=== PATIENT | female | born 1960 | race Caucasian/White ===

== ENCOUNTER 2018-05-28 13:45 | Outpatient (RCR) | payer OTHER, SELFPAY ==
--- NOTE | 2018-05-13 16:45 | PT.OPPOC ---
Current Diagnoses Sciatica, unspecified side (05/13/18) Provider Visit Care Team Role Provider Type Talat Avendaño MD Attending Provider Physician Primary Care Provider Specialty: Internal Medicine Address: [address] [place] [address], [facility] Email: Plan Of Care PT-OP-T Assessment and Plan Start: 05/13/18 16:44 Freq: Status: Active Protocol: Document 05/13/18 16:45 EA (Rec: 05/13/18 16:53 EA [id number]) Physical Therapy Assessment Rehab Potential Rehabilitation Potential Good Evaluation Complexity Number of Personal Factors/Comorbidities 1-2 Number of Body Systems Impaired 1-2 Clinical Presentation at Evaluation Stable Impairments Impairments Activity Tolerance Functional Activities Pain Posture ROM Soft Tissue Mobility Goals Four Impairment Impaired posture Group Home Goal (LTG) Patient will demonstrate near to normal lumbopelvic posture to prevent recurrence of symptoms LTG Duration 4 wks Three Impairment impaired activity tolerance Group Home Goal (LTG) Patient will perform elliptical machine cardio exercises > 30mins without increase in symptoms LTG Duration 4 wks Two Impairment Oswestry low back functional scale of 15/50 Sustainability Consultant Goal (LTG) Patient will have Oswestry score of <10/50 LTG Duration 4 wks One Impairment No HEP in place Sustainability Consultant Goal (LTG) Patient will learn and be independent in HEP LTG Duration 3 wks Assessment Summary Assessment Pleasant 57 y/o F patient with a referring diagnosis of sciatica presented today with a limited spinal mobility and tenderness to right lumbosacral region. Patient reveals sensitive to prone instability tests, negative to posterior quadrant tests to both neural and facets, negative to SLR passive/active , negative to Gaenslen's test. MMT reveals insignificant, sensory and DTRS are WFL, negative to pseudo claudication test. Spinal mobility reveals limited with side flexion>extension> rotation but with normal forward bending. Patient at this time is limited functional position tolerance and functional exercises tolerance that in my opinion would benefit with skilled PT to improve quality of life. Physical Therapy Plan Frequency and Duration Frequency of Treatment 2x/Week Duration of Treatment 8 wks Plan of Care Start Date 05/13/18 Plan of Care End Date 07/08/18 Therapeutic Interventions Therapeutic Interventions Home Exercise Program Joint Mobilizations Manual Therapy Self-Care/Home Management Soft Tissue Mobilization Taping Therapeutic Exercises Modalities Cold Pack/Ice Massage Electric Stimulation Hot Packs Ultrasound Next Visit Focus/Plan Next Note Type Treatment Note Next Visit Plan Provide HEP images; increase right and left side trunk flexibility, manual and modalities for pain Plan of Care Dates Plan of Care Start Date 05/13/18 Plan of Care End Date 07/08/18 Please Sign and Return: I have reviewed this Plan of Care and certify that the skilled therapy services above are required to meet the patient?s needs. Physician Signature Date Printed Name and Credentials Clinical Instructor Signature Printed Name and Credentials
--- NOTE | 2018-05-13 16:45 | PT.OIE ---
Current Diagnoses Sciatica, unspecified side (05/13/18) Past Medical History (Last Updated 02/03/18 @ 21:34 by Frances Carpenter) Hypertension (Chronic) Provider Visit Care Team Role Provider Type Talat Avendaño MD Attending Provider Physician Primary Care Provider Specialty: Internal Medicine Address: [address] [place] [address], [id number] Email: Physical Therapy Initial Evaluation PT-OP-A Visit Information Start: 05/13/18 16:44 Freq: Status: Active Protocol: Document 05/13/18 16:45 EA (Rec: 05/13/18 16:53 EA [id number]) Out-Patient Physical Therapy Visit Information Visit Information Visit Type Initial Evaluation Visit Start Time 15:15 Visit Stop Time 16:00 Total Visit Minutes 40 Visit Number 1 Evaluation Information Evaluation Date 05/13/18 PT-OP-B Current Condition Start: 05/13/18 16:44 Freq: Status: Active Protocol: Document 05/13/18 16:45 EA (Rec: 05/17/18 07:30 EA [id number]) Current Condition History of Current Condition Onset Date 9 years ago Current Complaints Radiating pain from lumbar to Right foot History of Current Condition Present condition started 9 years ago with similar complaint of radiating pain from lumbar to right leg down to foot. Patient condition 9 years ago was resolved with help of being active and being retired from from work. Patient reports re-aggravated last January of 2018 with no known reason which developed gradually. No recent diagnostic imaging. Pain managed by stretching and resting. Prior Treatments and Tests None Identified Future Testing and Treatments Planned None identified Treatment Goals Patient/Caregiver Goals Patient would like to be able to perform 3 x a week of cardio exercises without symptoms aggravation. Prior Functional Status Baseline Function- ADL's Independent Baseline Function- Mobility Independent Baseline Function- Gait No limitation Baseline Function- Work/School Retired Baseline Function- Recreation/Hobbies Active lifestyle with ability to perform 3-4 times a week of cardione exercises. Current Functional Impairments (Reported) Functional Limitations- ADL's Independent Functional Limitations- Mobility/Gait Limited with increasing activity duration due to pain Functional Limitations- Work/School Retired Functional Limitations- Recreation/ Unable to perform consistent Hobbies or regular fitness exercises due to pain PT-OP-C Subjective Start: 05/13/18 16:44 Freq: Status: Active Protocol: Document 05/13/18 16:45 EA (Rec: 05/17/18 07:30 EA [id number]) OP-PT Subjective Patient Comments Patient Comments Patient states I am concern that I am making it worst when i'm exercising with pain. Patient Reported Progress Same Patient Questionnaires Oswestry Low Back Index Oswestry Score 15 Oswestry Impairment 1 to 19% Impaired (Score 1-19) OP-PT Pain Assessment Pain Assessment Grid Paper Pain Assessment Grid Completed Yes Location Right Posterior Back Pain Location Details 4 Scale Used Numeric (1 - 10) Description Radiating Frequency Intermittent Pain Aggravating Factors Exercise Home Pain Medication Use Pain Medications Used No Comments Pain Comments Patient is amb with no acute distress. PT-OP-G Mobility & Gait Start: 05/13/18 16:44 Freq: Status: Active Protocol: Document 05/13/18 16:45 EA (Rec: 05/17/18 07:30 EA [id number]) OP Mobility Evaluation Bed Mobility Rolling no limitation Supine to and from Sit No limitation OP Gait Assessment Gait Gait Assistance Required: Independent Assistive Devices Assistive Device None Comments Gait Comments Increased pelvic lateral displacement PT-OP-H Neuro Start: 05/13/18 16:44 Freq: Status: Active Protocol: Document 05/13/18 16:45 EA (Rec: 05/17/18 07:30 EA [id number]) Sensation Evaluation Location Details Right Light Touch Intact/Normal Sharp/Dull Intact/Normal Deep Pressure Intact/Normal Hot/Cold Intact/Normal Protective Sensation Intact/Normal Proprioception (Position) Intact/Normal Kinesthesia (Movement) Intact/Normal Deep Tendon Reflex & Clonus Assessment Deep Tendon Reflex Achilles Deep Tendon Reflex 2+ Normal Right Patellar Deep Tendon Reflex 2+ Normal PT-OP-J Posture/Palpation/Skin Start: 05/13/18 16:44 Freq: Status: Active Protocol: Document 05/13/18 16:45 EA (Rec: 05/17/18 07:30 EA [id number]) Posture Evaluation Position Standing Evaluation View post/lateral Head/C-Spine Posture Neutral Position L-Spine Posture Increased Lordosis Pelvis Posture (R) Rotated Anterior (R) Iliac Crest Superior Hip Posture (R) Internally Rotated Palpation Assessment Location Two Palpation Location R L4-L5 PA mobility Palpation Findings Soft Tissue Tightness Tenderness One Palpation Location Right paralumbars, QL Palpation Findings Soft Tissue Tightness Trigger Point PT-OP-K Range of Motion Start: 05/13/18 16:44 Freq: Status: Active Protocol: Document 05/13/18 16:45 EA (Rec: 05/17/18 07:30 EA [id number]) Lumbar Spine Range of Motion Lumbar Spine Active Percentage Testing Position Standing Flexion 95 Extension 50 Rotation Left 80 Rotation Right 80 Lateral Flexion Left 50 Lateral Flexion Right 55 ROM Limitations Soft Tissue Tightness Pain Hip Goniometric Range of Motion Hip Measured in Degrees Active Hip ROM WFL Yes Extension 10 PT-OP-L Special Tests Start: 05/13/18 16:44 Freq: Status: Active Protocol: Document 05/13/18 16:45 EA (Rec: 05/17/18 07:37 EA [id number]) Special Tests Lumbar Spine Special Tests Other- 1 Test Results Posterior quadrant: negative to facets and nerve compression. Prone Instability Test Test Results Sensitive Straight Leg Raise Test Results - Hip Special Tests Stef Test Results + Comments tightnes to both RF PT-OP-M Strength Start: 05/13/18 16:44 Freq: Status: Active Protocol: Document 05/13/18 16:45 EA (Rec: 05/17/18 07:37 EA [id number]) Hip Strength Hip Manual Muscle Testing Right Reason Not Measured WFL Knee Strength Knee Manual Muscle Testing Right Reason Not Measured WFL Ankle/Foot Strength Ankle and Foot Manual Muscle Testing Right Reason Not Measured WFL Comments able to walk on heels and toes PT-OP-Q Treatments Start: 05/13/18 16:44 Freq: Status: Active Protocol: Document 05/13/18 16:45 EA (Rec: 05/13/18 16:53 EA [id number]) Therapeutic Exercises Supine Exercises 2 Supine Exercise Name Trunk rotation Reps/Minutes x 10 reps 1 Supine Exercise Name Hip flexors stretch Reps/Minutes x 30SH x 2 Comments HEP Prone Exercises 2 Prone Exercise Name Camel and Cat Reps/Minutes x 10 reps Comments hEP 1 Prone Exercise Name right QL stretch Reps/Minutes x30SH x 2 reps Comments HEP Standing Exercises 1 Standing Exercise Name Half Kneeling hip flexor stretch Self-Care/Home Management Treatment Education Patient Education Body Mechanics Home Exercise Program Pain Management Posture PT-OP-T Assessment and Plan Start: 05/13/18 16:44 Freq: Status: Active Protocol: Document 05/13/18 16:45 EA (Rec: 05/13/18 16:53 EA [id number]) Physical Therapy Assessment Rehab Potential Rehabilitation Potential Good Evaluation Complexity Number of Personal Factors/Comorbidities 1-2 Number of Body Systems Impaired 1-2 Clinical Presentation at Evaluation Stable Impairments Impairments Activity Tolerance Functional Activities Pain Posture ROM Soft Tissue Mobility Goals Four Impairment Impaired posture Fpc Goal (LTG) Patient will demonstrate near to normal lumbopelvic porture to prevent recurrence of symptoms LTG Duration 4 wks Three Impairment impaired activity tolerance Casing Mixer Goal (LTG) Patient will perform eliptical machine cardio exercises > 30mins without increase in symptoms LTG Duration 4 wks Two Impairment Oswestry low back functional scale of 15/50 Casing Mixer Goal (LTG) Patient will have Oswestry score of <10/50 LTG Duration 4 wks One Impairment No HEP in place Casing Mixer Goal (LTG) Patient will learn and be independent in HEP LTG Duration 3 wks Assessment Summary Assessment Pleasant 57 y/o F patient with a referring diagnosis of sciatica presented today with a limited spinal mobility and tenderness to right lumbosacral region. Patient reveals sensitive to prone instability tests, negative to posterior quadrant tests to both neural and facets, negative to SLR passive/active , negative to Gaenslen's test. MMT reveals insignificant, sensory and DTRS are WFL, negative to pseudo claudication test. Spinal mobility reveals limited with side flexion>extension> rotation but with normal forward bending. Patient at this time is limited functional position tolerance and functional exercises tolerance that in my opinion would benefit with skilled PT to improve quality of life. Physical Therapy Plan Frequency and Duration Frequency of Treatment 2x/Week Duration of Treatment 8 wks Plan of Care Start Date 05/13/18 Plan of Care End Date 07/08/18 Therapeutic Interventions Therapeutic Interventions Home Exercise Program Joint Mobilizations Manual Therapy Self-Care/Home Management Soft Tissue Mobilization Taping Therapeutic Exercises Modalities Cold Pack/Ice Massage Electric Stimulation Hot Packs Ultrasound Next Visit Focus/Plan Next Note Type Treatment Note Next Visit Plan Provide HEP images; increase right and left side trunk flexibility, manual and modalities for pain
--- NOTE | 2018-05-19 17:24 | PT.OTN ---
Current Diagnoses Sciatica, unspecified side (05/19/18) Physical Therapy Treatment Note PT-OP-A Visit Information Start: 05/13/18 16:44 Freq: Status: Active Protocol: Document 05/19/18 12:58 EA (Rec: 05/19/18 13:02 EA [id number]) Out-Patient Physical Therapy Visit Information Visit Information Visit Type Treatment Note Visit Start Time 12:15 Visit Stop Time 13:08 Total Visit Minutes 53 Visit Number 2 PT-OP-B Current Condition Start: 05/13/18 16:44 Freq: Status: Active Protocol: Document 05/13/18 16:45 EA (Rec: 05/17/18 07:30 EA [id number]) Current Condition History of Current Condition Onset Date 9 years ago Current Complaints Radiating pain from lumbar to Right foot History of Current Condition Present condition started 9 years ago with similar complaint of radiating pain from lumbar to right leg down to foot. Patient condition 9 years ago was resolved with help of being active and being retired from from work. Patient reports re-aggravated last January of 2018 with no known reason which developed gradually. No recent diagnostic imaging. Pain managed by stretching and resting. Prior Treatments and Tests None Identified Future Testing and Treatments Planned None identified Treatment Goals Patient/Caregiver Goals Patient would like to be able to perform 3 x a week of cardio exercises without symptoms aggravation. Prior Functional Status Baseline Function- ADL's Independent Baseline Function- Mobility Independent Baseline Function- Gait No limitation Baseline Function- Work/School Retired Baseline Function- Recreation/Hobbies Active lifestyle with ability to perform 3-4 times a week of cardione exercises. Current Functional Impairments (Reported) Functional Limitations- ADL's Independent Functional Limitations- Mobility/Gait Limited with increasing activity duration due to pain Functional Limitations- Work/School Retired Functional Limitations- Recreation/ Unable to perform consistent Hobbies or regular fitness exercises due to pain PT-OP-C Subjective Start: 05/13/18 16:44 Freq: Status: Active Protocol: Document 05/19/18 12:58 EA (Rec: 05/19/18 13:02 EA [id number]) OP-PT Subjective Patient Comments Patient Comments No new complaint low back pain and right foot tingling still bothers her. PT-OP-G Mobility & Gait Start: 05/13/18 16:44 Freq: Status: Active Protocol: Document 05/13/18 16:45 EA (Rec: 05/17/18 07:30 EA [id number]) OP Mobility Evaluation Bed Mobility Rolling no limitation Supine to and from Sit No limitation OP Gait Assessment Gait Gait Assistance Required: Independent Assistive Devices Assistive Device None Comments Gait Comments Increased pelvic lateral displacement PT-OP-H Neuro Start: 05/13/18 16:44 Freq: Status: Active Protocol: Document 05/13/18 16:45 EA (Rec: 05/17/18 07:30 EA [id number]) Sensation Evaluation Location Details Right Light Touch Intact/Normal Sharp/Dull Intact/Normal Deep Pressure Intact/Normal Hot/Cold Intact/Normal Protective Sensation Intact/Normal Proprioception (Position) Intact/Normal Kinesthesia (Movement) Intact/Normal Deep Tendon Reflex & Clonus Assessment Deep Tendon Reflex Achilles Deep Tendon Reflex 2+ Normal Right Patellar Deep Tendon Reflex 2+ Normal PT-OP-J Posture/Palpation/Skin Start: 05/13/18 16:44 Freq: Status: Active Protocol: Document 05/13/18 16:45 EA (Rec: 05/17/18 07:30 EA [id number]) Posture Evaluation Position Standing Evaluation View post/lateral Head/C-Spine Posture Neutral Position L-Spine Posture Increased Lordosis Pelvis Posture (R) Rotated Anterior (R) Iliac Crest Superior Hip Posture (R) Internally Rotated Palpation Assessment Location Two Palpation Location R L4-L5 PA mobility Palpation Findings Soft Tissue Tightness Tenderness One Palpation Location Right paralumbars, QL Palpation Findings Soft Tissue Tightness Trigger Point PT-OP-K Range of Motion Start: 05/13/18 16:44 Freq: Status: Active Protocol: Document 05/13/18 16:45 EA (Rec: 05/17/18 07:30 EA [id number]) Lumbar Spine Range of Motion Lumbar Spine Active Percentage Testing Position Standing Flexion 95 Extension 50 Rotation Left 80 Rotation Right 80 Lateral Flexion Left 50 Lateral Flexion Right 55 ROM Limitations Soft Tissue Tightness Pain Hip Goniometric Range of Motion Hip Measured in Degrees Active Hip ROM WFL Yes Extension 10 PT-OP-L Special Tests Start: 05/13/18 16:44 Freq: Status: Active Protocol: Document 05/13/18 16:45 EA (Rec: 05/17/18 07:37 EA [id number]) Special Tests Lumbar Spine Special Tests Other- 1 Test Results Posterior quadrant: negative to facets and nerve compression. Prone Instability Test Test Results Sensitive Straight Leg Raise Test Results - Hip Special Tests Stef Test Results + Comments tightnes to both RF PT-OP-M Strength Start: 05/13/18 16:44 Freq: Status: Active Protocol: Document 05/13/18 16:45 EA (Rec: 05/17/18 07:37 EA [id number]) Hip Strength Hip Manual Muscle Testing Right Reason Not Measured WFL Knee Strength Knee Manual Muscle Testing Right Reason Not Measured WFL Ankle/Foot Strength Ankle and Foot Manual Muscle Testing Right Reason Not Measured WFL Comments able to walk on heels and toes PT-OP-Q Treatments Start: 05/13/18 16:44 Freq: Status: Active Protocol: Document 05/19/18 12:58 EA (Rec: 05/19/18 13:02 EA [id number]) Cardio Equipment Recumbent Stepper (Sci-Fit) Duration (Minutes) 5 Resistance 2 Therapeutic Exercises Supine Exercises 3 Supine Exercise Name Partial sit up with SLR Reps/Minutes x 10 reps x 2 each 4 Supine Exercise Name PPT with SLR Reps/Minutes x 10 reps x 2 2 Supine Exercise Name Trunk rotation Reps/Minutes x 10 reps Comments HEP 1 Supine Exercise Name Hip flexors stretch Reps/Minutes x 30SH x 2 Comments HEP Prone Exercises 2 Prone Exercise Name Camel and Cat Reps/Minutes x 10 reps Comments hEP 1 Prone Exercise Name right QL stretch Reps/Minutes x30SH x 2 reps Comments HEP Standing Exercises 1 Standing Exercise Name Half Kneeling hip flexor stretch Reps/Minutes x 30 SH Manual Therapy Treatment Soft Tissue Mobilization 1 Mobilization Type Myofascial Release Sustained Pressure Intensity/Depth Moderate Body Position Prone Self-Care/Home Management Treatment Education Patient Education Home Exercise Program PT-OP-R Modalities Start: 05/13/18 16:44 Freq: Status: Active Protocol: Document 05/19/18 12:58 EA (Rec: 05/19/18 13:02 EA [id number]) Electric Stimulation Electric Stimulation Interferential Current (IFC) Body Location Paralumbars Patient Position Prone Combined With Heat/Cold Hot Pack PT-OP-T Assessment and Plan Start: 05/13/18 16:44 Freq: Status: Active Protocol: Document 05/19/18 13:06 EA (Rec: 05/19/18 13:07 EA [id number]) Physical Therapy Assessment Assessment Summary Assessment Patient tolerated treatment with no discomfort noted at this time. Recommended exercises given and shows good carryover. Physical Therapy Plan Next Visit Focus/Plan Next Note Type Treatment Note Next Visit Plan Core stability exercises; lumbar stretching
--- NOTE | 2018-05-21 17:44 | PT.OTN ---
Current Diagnoses Sciatica, unspecified side (05/21/18) Physical Therapy Treatment Note PT-OP-A Visit Information Start: 05/13/18 16:44 Freq: Status: Active Protocol: Document 05/21/18 13:45 HH (Rec: 05/21/18 17:44 HH [email or web address]) Out-Patient Physical Therapy Visit Information Visit Information Visit Type Treatment Note Visit Start Time 13:45 Visit Stop Time 14:30 Total Visit Minutes 45 Visit Number 3 PT-OP-B Current Condition Start: 05/13/18 16:44 Freq: Status: Active Protocol: Document 05/13/18 16:45 EA (Rec: 05/17/18 07:30 EA [id number]) Current Condition History of Current Condition Onset Date 9 years ago Current Complaints Radiating pain from lumbar to Right foot History of Current Condition Present condition started 9 years ago with similar complaint of radiating pain from lumbar to right leg down to foot. Patient condition 9 years ago was resolved with help of being active and being retired from from work. Patient reports re-aggravated last January of 2018 with no known reason which developed gradually. No recent diagnostic imaging. Pain managed by stretching and resting. Prior Treatments and Tests None Identified Future Testing and Treatments Planned None identified Treatment Goals Patient/Caregiver Goals Patient would like to be able to perform 3 x a week of cardio exercises without symptoms aggravation. Prior Functional Status Baseline Function- ADL's Independent Baseline Function- Mobility Independent Baseline Function- Gait No limitation Baseline Function- Work/School Retired Baseline Function- Recreation/Hobbies Active lifestyle with ability to perform 3-4 times a week of cardione exercises. Current Functional Impairments (Reported) Functional Limitations- ADL's Independent Functional Limitations- Mobility/Gait Limited with increasing activity duration due to pain Functional Limitations- Work/School Retired Functional Limitations- Recreation/ Unable to perform consistent Hobbies or regular fitness exercises due to pain PT-OP-C Subjective Start: 05/13/18 16:44 Freq: Status: Active Protocol: Document 05/21/18 13:45 HH (Rec: 05/21/18 17:44 HH [email or web address]) OP-PT Subjective Patient Comments Patient Comments My back is quite sore after gardening but my foot tingling did not bother me. [facility] has been helping as well PT-OP-G Mobility & Gait Start: 05/13/18 16:44 Freq: Status: Active Protocol: Document 05/13/18 16:45 EA (Rec: 05/17/18 07:30 EA [id number]) OP Mobility Evaluation Bed Mobility Rolling no limitation Supine to and from Sit No limitation OP Gait Assessment Gait Gait Assistance Required: Independent Assistive Devices Assistive Device None Comments Gait Comments Increased pelvic lateral displacement PT-OP-H Neuro Start: 05/13/18 16:44 Freq: Status: Active Protocol: Document 05/13/18 16:45 EA (Rec: 05/17/18 07:30 EA [id number]) Sensation Evaluation Location Details Right Light Touch Intact/Normal Sharp/Dull Intact/Normal Deep Pressure Intact/Normal Hot/Cold Intact/Normal Protective Sensation Intact/Normal Proprioception (Position) Intact/Normal Kinesthesia (Movement) Intact/Normal Deep Tendon Reflex & Clonus Assessment Deep Tendon Reflex Achilles Deep Tendon Reflex 2+ Normal Right Patellar Deep Tendon Reflex 2+ Normal PT-OP-J Posture/Palpation/Skin Start: 05/13/18 16:44 Freq: Status: Active Protocol: Document 05/13/18 16:45 EA (Rec: 05/17/18 07:30 EA [id number]) Posture Evaluation Position Standing Evaluation View post/lateral Head/C-Spine Posture Neutral Position L-Spine Posture Increased Lordosis Pelvis Posture (R) Rotated Anterior (R) Iliac Crest Superior Hip Posture (R) Internally Rotated Palpation Assessment Location Two Palpation Location R L4-L5 PA mobility Palpation Findings Soft Tissue Tightness Tenderness One Palpation Location Right paralumbars, QL Palpation Findings Soft Tissue Tightness Trigger Point PT-OP-K Range of Motion Start: 05/13/18 16:44 Freq: Status: Active Protocol: Document 05/13/18 16:45 EA (Rec: 05/17/18 07:30 EA [id number]) Lumbar Spine Range of Motion Lumbar Spine Active Percentage Testing Position Standing Flexion 95 Extension 50 Rotation Left 80 Rotation Right 80 Lateral Flexion Left 50 Lateral Flexion Right 55 ROM Limitations Soft Tissue Tightness Pain Hip Goniometric Range of Motion Hip Measured in Degrees Active Hip ROM WFL Yes Extension 10 PT-OP-L Special Tests Start: 05/13/18 16:44 Freq: Status: Active Protocol: Document 05/13/18 16:45 EA (Rec: 05/17/18 07:37 EA [id number]) Special Tests Lumbar Spine Special Tests Other- 1 Test Results Posterior quadrant: negative to facets and nerve compression. Prone Instability Test Test Results Sensitive Straight Leg Raise Test Results - Hip Special Tests Stef Test Results + Comments tightnes to both RF PT-OP-M Strength Start: 05/13/18 16:44 Freq: Status: Active Protocol: Document 05/13/18 16:45 EA (Rec: 05/17/18 07:37 EA [id number]) Hip Strength Hip Manual Muscle Testing Right Reason Not Measured WFL Knee Strength Knee Manual Muscle Testing Right Reason Not Measured WFL Ankle/Foot Strength Ankle and Foot Manual Muscle Testing Right Reason Not Measured WFL Comments able to walk on heels and toes PT-OP-Q Treatments Start: 05/13/18 16:44 Freq: Status: Active Protocol: Document 05/21/18 13:45 HH (Rec: 05/21/18 17:44 HH [email or web address]) Therapeutic Exercises Prone Exercises 2 Prone Exercise Name Camel and Cat Reps/Minutes x 10 reps Comments hEP Sidelying Exercises hipflexors stretch Side right Reps/Minutes 10 secs x 10 Comments stretch by therapist Sitting Exercises seated pelvic tilt Side bilateral Reps/Minutes 20 x 2 Comments needs cues to isolate L/S movements Standing Exercises RDL Side right Reps/Minutes 10 x3 Comments cues for neutral foot and knee standing pelvic tilt Side bilateral Reps/Minutes 20 x2 Comments needs cues to isolate L/S movements Manual Therapy Treatment Soft Tissue Mobilization 1 Body Location B paraspinals Mobilization Type Myofascial Release Sustained Pressure Intensity/Depth Moderate Body Position Prone Nerve Glides R sciatic nerve glide Body Position Sitting Reps/Duration 20 Comments with trunk flexion and cervical flexion, ankle DF PT-OP-R Modalities Start: 05/13/18 16:44 Freq: Status: Active Protocol: Document 05/19/18 12:58 EA (Rec: 05/19/18 13:02 EA [id number]) Electric Stimulation Electric Stimulation Interferential Current (IFC) Body Location Paralumbars Patient Position Prone Combined With Heat/Cold Hot Pack PT-OP-T Assessment and Plan Start: 05/13/18 16:44 Freq: Status: Active Protocol: Document 05/21/18 13:45 HH (Rec: 05/21/18 17:44 HH [email or web address]) Physical Therapy Assessment Assessment Summary Assessment noticeable slight L hip drop during gait, and flexed hip R> L at standing position. Pt also has significant decreased in segmental lumbar mobility. Today's tx focused on segmental mobility, LLE single leg balance and strength, nerve glide. Physical Therapy Plan Next Visit Focus/Plan Next Note Type Treatment Note Next Visit Plan Core stability exercises; lumbar stretching
--- NOTE | 2018-05-26 13:45 | PT.OTN ---
Current Diagnoses Sciatica, unspecified side (05/26/18) Physical Therapy Treatment Note PT-OP-A Visit Information Start: 05/13/18 16:44 Freq: Status: Active Protocol: Document 05/26/18 13:45 RCC (Rec: 05/27/18 18:04 RCC [email or web address]) Out-Patient Physical Therapy Visit Information Visit Information Visit Type Treatment Note Visit Start Time 13:45 Visit Stop Time 14:28 Total Visit Minutes 43 Visit Number 4 Number of INDUSTRIAL ENGINEERING TECHNOLOGIST Visits 0 Evaluation Information Evaluation Date 05/13/18 PT-OP-B Current Condition Start: 05/13/18 16:44 Freq: Status: Active Protocol: Document 05/13/18 16:45 EA (Rec: 05/17/18 07:30 EA [id number]) Current Condition History of Current Condition Onset Date 9 years ago Current Complaints Radiating pain from lumbar to Right foot History of Current Condition Present condition started 9 years ago with similar complaint of radiating pain from lumbar to right leg down to foot. Patient condition 9 years ago was resolved with help of being active and being retired from from work. Patient reports re-aggravated last January of 2018 with no known reason which developed gradually. No recent diagnostic imaging. Pain managed by stretching and resting. Prior Treatments and Tests None Identified Future Testing and Treatments Planned None identified Treatment Goals Patient/Caregiver Goals Patient would like to be able to perform 3 x a week of cardio exercises without symptoms aggravation. Prior Functional Status Baseline Function- ADL's Independent Baseline Function- Mobility Independent Baseline Function- Gait No limitation Baseline Function- Work/School Retired Baseline Function- Recreation/Hobbies Active lifestyle with ability to perform 3-4 times a week of cardione exercises. Current Functional Impairments (Reported) Functional Limitations- ADL's Independent Functional Limitations- Mobility/Gait Limited with increasing activity duration due to pain Functional Limitations- Work/School Retired Functional Limitations- Recreation/ Unable to perform consistent Hobbies or regular fitness exercises due to pain PT-OP-C Subjective Start: 05/13/18 16:44 Freq: Status: Active Protocol: Document 05/26/18 13:45 RCC (Rec: 05/27/18 18:04 RCC [email or web address]) OP-PT Subjective Patient Comments Patient Comments Pt notes tingling occasionally with driving or prolonged sitting. PT-OP-G Mobility & Gait Start: 05/13/18 16:44 Freq: Status: Active Protocol: Document 05/13/18 16:45 EA (Rec: 05/17/18 07:30 EA [id number]) OP Mobility Evaluation Bed Mobility Rolling no limitation Supine to and from Sit No limitation OP Gait Assessment Gait Gait Assistance Required: Independent Assistive Devices Assistive Device None Comments Gait Comments Increased pelvic lateral displacement PT-OP-H Neuro Start: 05/13/18 16:44 Freq: Status: Active Protocol: Document 05/13/18 16:45 EA (Rec: 05/17/18 07:30 EA [id number]) Sensation Evaluation Location Details Right Light Touch Intact/Normal Sharp/Dull Intact/Normal Deep Pressure Intact/Normal Hot/Cold Intact/Normal Protective Sensation Intact/Normal Proprioception (Position) Intact/Normal Kinesthesia (Movement) Intact/Normal Deep Tendon Reflex & Clonus Assessment Deep Tendon Reflex Achilles Deep Tendon Reflex 2+ Normal Right Patellar Deep Tendon Reflex 2+ Normal PT-OP-J Posture/Palpation/Skin Start: 05/13/18 16:44 Freq: Status: Active Protocol: Document 05/13/18 16:45 EA (Rec: 05/17/18 07:30 EA [id number]) Posture Evaluation Position Standing Evaluation View post/lateral Head/C-Spine Posture Neutral Position L-Spine Posture Increased Lordosis Pelvis Posture (R) Rotated Anterior (R) Iliac Crest Superior Hip Posture (R) Internally Rotated Palpation Assessment Location Two Palpation Location R L4-L5 PA mobility Palpation Findings Soft Tissue Tightness Tenderness One Palpation Location Right paralumbars, QL Palpation Findings Soft Tissue Tightness Trigger Point PT-OP-K Range of Motion Start: 05/13/18 16:44 Freq: Status: Active Protocol: Document 05/13/18 16:45 EA (Rec: 05/17/18 07:30 EA [id number]) Lumbar Spine Range of Motion Lumbar Spine Active Percentage Testing Position Standing Flexion 95 Extension 50 Rotation Left 80 Rotation Right 80 Lateral Flexion Left 50 Lateral Flexion Right 55 ROM Limitations Soft Tissue Tightness Pain Hip Goniometric Range of Motion Hip Measured in Degrees Active Hip ROM WFL Yes Extension 10 PT-OP-L Special Tests Start: 05/13/18 16:44 Freq: Status: Active Protocol: Document 05/13/18 16:45 EA (Rec: 05/17/18 07:37 EA [id number]) Special Tests Lumbar Spine Special Tests Other- 1 Test Results Posterior quadrant: negative to facets and nerve compression. Prone Instability Test Test Results Sensitive Straight Leg Raise Test Results - Hip Special Tests Stef Test Results + Comments tightnes to both RF PT-OP-M Strength Start: 05/13/18 16:44 Freq: Status: Active Protocol: Document 05/13/18 16:45 EA (Rec: 05/17/18 07:37 EA [id number]) Hip Strength Hip Manual Muscle Testing Right Reason Not Measured WFL Knee Strength Knee Manual Muscle Testing Right Reason Not Measured WFL Ankle/Foot Strength Ankle and Foot Manual Muscle Testing Right Reason Not Measured WFL Comments able to walk on heels and toes PT-OP-Q Treatments Start: 05/13/18 16:44 Freq: Status: Active Protocol: Document 05/26/18 13:45 RCC (Rec: 05/27/18 18:04 RCC [email or web address]) Gym Equipment Therapeutic Ball L sidebending stretch Ball Size/Color 55 cm ball Body Position Sitting Reps/Duration x2 min PPT Ball Size/Color 55 cm Body Position Sitting Reps/Duration x20 Therapeutic Exercises Supine Exercises sciatic nerve glide Side right Reps/Minutes 2x5 Comments full tension 2 Supine Exercise Name Trunk rotation Reps/Minutes x 10 reps 1 Supine Exercise Name Hip flexors stretch Reps/Minutes x 30SH x 2 Sidelying Exercises clamshell Side bilateral Resistance L1 band Reps/Minutes x15 each Sitting Exercises seated pelvic tilt Side bilateral Reps/Minutes 5 min Comments needs cues to isolate L/S movements Standing Exercises hip extension Side right Resistance L2 band Reps/Minutes x15 Manual Therapy Treatment Soft Tissue Mobilization 1 Body Location B paraspinals and R piriformis Mobilization Type Myofascial Release Sustained Pressure Intensity/Depth Moderate Body Position Prone PT-OP-R Modalities Start: 05/13/18 16:44 Freq: Status: Active Protocol: Document 05/19/18 12:58 EA (Rec: 05/19/18 13:02 EA [id number]) Electric Stimulation Electric Stimulation Interferential Current (IFC) Body Location Paralumbars Patient Position Prone Combined With Heat/Cold Hot Pack PT-OP-T Assessment and Plan Start: 05/13/18 16:44 Freq: Status: Active Protocol: Document 05/26/18 13:45 RCC (Rec: 05/27/18 18:04 RCC [email or web address]) Physical Therapy Assessment Assessment Summary Assessment Pt with improved seated posture with cuing using a posterior pelvic tilt, possibly the cause of increased tingling when seated for prolonged period of time in the car. Pt tolerated full tension nerve glide of the R sciatic nerve in supine, added to HEP. Physical Therapy Plan Frequency and Duration Frequency of Treatment 2x/Week Duration of Treatment 8 wks Plan of Care Start Date 05/13/18 Plan of Care End Date 07/08/18 Next Visit Focus/Plan Next Note Type Treatment Note Next Visit Plan core and hip strengthening
--- NOTE | 2018-05-28 14:47 | PT.OTN ---
Current Diagnoses Sciatica, unspecified side (05/28/18) Physical Therapy Treatment Note PT-OP-A Visit Information Start: 05/13/18 16:44 Freq: Status: Active Protocol: Document 05/28/18 14:47 SA (Rec: 05/28/18 14:47 SA [email or web address]) Out-Patient Physical Therapy Visit Information Visit Information Visit Type Treatment Note Visit Start Time 01:45 Visit Stop Time 02:30 Total Visit Minutes 45 Visit Number 5 Number of WHEEL AND PINION INSPECTOR Visits 1 PT-OP-B Current Condition Start: 05/13/18 16:44 Freq: Status: Active Protocol: Document 05/13/18 16:45 EA (Rec: 05/17/18 07:30 EA [id number]) Current Condition History of Current Condition Onset Date 9 years ago Current Complaints Radiating pain from lumbar to Right foot History of Current Condition Present condition started 9 years ago with similar complaint of radiating pain from lumbar to right leg down to foot. Patient condition 9 years ago was resolved with help of being active and being retired from from work. Patient reports re-aggravated last January of 2018 with no known reason which developed gradually. No recent diagnostic imaging. Pain managed by stretching and resting. Prior Treatments and Tests None Identified Future Testing and Treatments Planned None identified Treatment Goals Patient/Caregiver Goals Patient would like to be able to perform 3 x a week of cardio exercises without symptoms aggravation. Prior Functional Status Baseline Function- ADL's Independent Baseline Function- Mobility Independent Baseline Function- Gait No limitation Baseline Function- Work/School Retired Baseline Function- Recreation/Hobbies Active lifestyle with ability to perform 3-4 times a week of cardione exercises. Current Functional Impairments (Reported) Functional Limitations- ADL's Independent Functional Limitations- Mobility/Gait Limited with increasing activity duration due to pain Functional Limitations- Work/School Retired Functional Limitations- Recreation/ Unable to perform consistent Hobbies or regular fitness exercises due to pain PT-OP-C Subjective Start: 05/13/18 16:44 Freq: Status: Active Protocol: Document 05/28/18 14:35 SA (Rec: 05/28/18 14:46 SA [email or web address]) OP-PT Subjective Patient Comments Patient Comments Pt doing well, occasional sx with sitting car, got a lumbar roll and hoping this helps but sx are very minimal. PT-OP-G Mobility & Gait Start: 05/13/18 16:44 Freq: Status: Active Protocol: Document 05/13/18 16:45 EA (Rec: 05/17/18 07:30 EA [id number]) OP Mobility Evaluation Bed Mobility Rolling no limitation Supine to and from Sit No limitation OP Gait Assessment Gait Gait Assistance Required: Independent Assistive Devices Assistive Device None Comments Gait Comments Increased pelvic lateral displacement PT-OP-H Neuro Start: 05/13/18 16:44 Freq: Status: Active Protocol: Document 05/13/18 16:45 EA (Rec: 05/17/18 07:30 EA [id number]) Sensation Evaluation Location Details Right Light Touch Intact/Normal Sharp/Dull Intact/Normal Deep Pressure Intact/Normal Hot/Cold Intact/Normal Protective Sensation Intact/Normal Proprioception (Position) Intact/Normal Kinesthesia (Movement) Intact/Normal Deep Tendon Reflex & Clonus Assessment Deep Tendon Reflex Achilles Deep Tendon Reflex 2+ Normal Right Patellar Deep Tendon Reflex 2+ Normal PT-OP-J Posture/Palpation/Skin Start: 05/13/18 16:44 Freq: Status: Active Protocol: Document 05/13/18 16:45 EA (Rec: 05/17/18 07:30 EA [id number]) Posture Evaluation Position Standing Evaluation View post/lateral Head/C-Spine Posture Neutral Position L-Spine Posture Increased Lordosis Pelvis Posture (R) Rotated Anterior (R) Iliac Crest Superior Hip Posture (R) Internally Rotated Palpation Assessment Location Two Palpation Location R L4-L5 PA mobility Palpation Findings Soft Tissue Tightness Tenderness One Palpation Location Right paralumbars, QL Palpation Findings Soft Tissue Tightness Trigger Point PT-OP-K Range of Motion Start: 05/13/18 16:44 Freq: Status: Active Protocol: Document 05/13/18 16:45 EA (Rec: 05/17/18 07:30 EA [id number]) Lumbar Spine Range of Motion Lumbar Spine Active Percentage Testing Position Standing Flexion 95 Extension 50 Rotation Left 80 Rotation Right 80 Lateral Flexion Left 50 Lateral Flexion Right 55 ROM Limitations Soft Tissue Tightness Pain Hip Goniometric Range of Motion Hip Measured in Degrees Active Hip ROM WFL Yes Extension 10 PT-OP-L Special Tests Start: 05/13/18 16:44 Freq: Status: Active Protocol: Document 05/13/18 16:45 EA (Rec: 05/17/18 07:37 EA [id number]) Special Tests Lumbar Spine Special Tests Other- 1 Test Results Posterior quadrant: negative to facets and nerve compression. Prone Instability Test Test Results Sensitive Straight Leg Raise Test Results - Hip Special Tests Stef Test Results + Comments tightnes to both RF PT-OP-M Strength Start: 05/13/18 16:44 Freq: Status: Active Protocol: Document 05/13/18 16:45 EA (Rec: 05/17/18 07:37 EA [id number]) Hip Strength Hip Manual Muscle Testing Right Reason Not Measured WFL Knee Strength Knee Manual Muscle Testing Right Reason Not Measured WFL Ankle/Foot Strength Ankle and Foot Manual Muscle Testing Right Reason Not Measured WFL Comments able to walk on heels and toes PT-OP-Q Treatments Start: 05/13/18 16:44 Freq: Status: Active Protocol: Document 05/28/18 14:35 SA (Rec: 05/28/18 14:46 SA [email or web address]) Cardio Equipment Recumbent Stepper (Sci-Fit) Duration (Minutes) 6 Resistance 2.5 Gym Equipment Therapeutic Ball seate marching with core stabalization Ball Size/Color 55cm Body Position Sitting Reps/Duration 15x each Comments progressed to alt UEs L sidebending stretch Ball Size/Color 55 cm ball Body Position Sitting Reps/Duration x2 min PPT Ball Size/Color 55 cm Body Position Sitting Reps/Duration x20 Therapeutic Exercises Sidelying Exercises clamshell Side bilateral Resistance 2# Reps/Minutes 15 hipflexors stretch Side right Reps/Minutes 10 secs x 10 Comments stretch by therapist Sitting Exercises seated pelvic tilt Side bilateral Reps/Minutes 5 min Comments needs cues to isolate L/S movements Standing Exercises hip extension Side right Resistance L2 band Reps/Minutes 20x RDL Side right Reps/Minutes 10 x3 Comments cues for neutral foot and knee standing pelvic tilt Side bilateral Comments needs cues to isolate L/S movements Manual Therapy Treatment Soft Tissue Mobilization 1 Body Location B paraspinals and R piriformis Mobilization Type Myofascial Release Sustained Pressure Intensity/Depth Moderate Body Position Prone Nerve Glides R sciatic nerve glide Body Position Sitting Reps/Duration 20 Comments with trunk flexion and cervical flexion, ankle DF PT-OP-R Modalities Start: 05/13/18 16:44 Freq: Status: Active Protocol: Document 05/19/18 12:58 EA (Rec: 05/19/18 13:02 EA [id number]) Electric Stimulation Electric Stimulation Interferential Current (IFC) Body Location [place]ars Patient Position Prone Combined With Heat/Cold Hot Pack PT-OP-T Assessment and Plan Start: 05/13/18 16:44 Freq: Status: Active Protocol: Document 05/28/18 14:35 SA (Rec: 05/28/18 14:46 SA [email or web address]) Physical Therapy Assessment Progress Towards Goals Progress Towards Goals Progressing Toward Goals Progress Comments Pt progressing well with decreased sx and daily completion of HEP. Pt feels she is managing sx well nerve glides, exercise and stretches . Assessment Summary Assessment R sciatic nerve glides effective in decreasing sx. Pt doing well with HEP and sx management. Physical Therapy Plan Next Visit Focus/Plan Next Note Type Treatment Note Next Visit Plan Pt provided with HEP and core progressions, plans to take 2 week break and return to PT to assess.
--- NOTE | 2018-10-06 11:59 | PT.OPDS ---
Current Diagnoses Sciatica, unspecified side (05/28/18) Provider Visit Care Team Role Provider Type Talat Avendaño MD Attending Provider Physician Primary Care Provider Specialty: Internal Medicine Address: [address] [place] [address], [facility] Email: Visit Number Visit Number 5 Discharge Summary PT-OP-B Current Condition Start: 05/13/18 16:44 Freq: Status: Active Protocol: Document 05/13/18 16:45 EA (Rec: 05/17/18 07:30 EA [id number]) Current Condition History of Current Condition Onset Date 9 years ago Current Complaints Radiating pain from lumbar to Right foot History of Current Condition Present condition started 9 years ago with similar complaint of radiating pain from lumbar to right leg down to foot. Patient condition 9 years ago was resolved with help of being active and being retired from from work. Patient reports re-aggravated last January of 2018 with no known reason which developed gradually. No recent diagnostic imaging. Pain managed by stretching and resting. Prior Treatments and Tests None Identified Future Testing and Treatments Planned None identified Treatment Goals Patient/Caregiver Goals Patient would like to be able to perform 3 x a week of cardio exercises without symptoms aggravation. Prior Functional Status Baseline Function- ADL's Independent Baseline Function- Mobility Independent Baseline Function- Gait No limitation Baseline Function- Work/School Retired Baseline Function- Recreation/Hobbies Active lifestyle with ability to perform 3-4 times a week of cardione exercises. Current Functional Impairments (Reported) Functional Limitations- ADL's Independent Functional Limitations- Mobility/Gait Limited with increasing activity duration due to pain Functional Limitations- Work/School Retired Functional Limitations- Recreation/ Unable to perform consistent Hobbies or regular fitness exercises due to pain PT-OP-C Subjective Start: 05/13/18 16:44 Freq: Status: Active Protocol: Document 05/28/18 14:35 SA (Rec: 05/28/18 14:46 SA [id number]) OP-PT Subjective Patient Comments Patient Comments Pt doing well, occasional sx with sitting car, got a lumbar roll and hoping this helps but sx are very minimal. PT-OP-G Mobility & Gait Start: 05/13/18 16:44 Freq: Status: Active Protocol: Document 05/13/18 16:45 EA (Rec: 05/17/18 07:30 EA [id number]) OP Mobility Evaluation Bed Mobility Rolling no limitation Supine to and from Sit No limitation OP Gait Assessment Gait Gait Assistance Required: Independent Assistive Devices Assistive Device None Comments Gait Comments Increased pelvic lateral displacement PT-OP-H Neuro Start: 05/13/18 16:44 Freq: Status: Active Protocol: Document 05/13/18 16:45 EA (Rec: 05/17/18 07:30 EA [id number]) Sensation Evaluation Location Details Right Light Touch Intact/Normal Sharp/Dull Intact/Normal Deep Pressure Intact/Normal Hot/Cold Intact/Normal Protective Sensation Intact/Normal Proprioception (Position) Intact/Normal Kinesthesia (Movement) Intact/Normal Deep Tendon Reflex & Clonus Assessment Deep Tendon Reflex Achilles Deep Tendon Reflex 2+ Normal Right Patellar Deep Tendon Reflex 2+ Normal PT-OP-J Posture/Palpation/Skin Start: 05/13/18 16:44 Freq: Status: Active Protocol: Document 05/13/18 16:45 EA (Rec: 05/17/18 07:30 EA [id number]) Posture Evaluation Position Standing Evaluation View post/lateral Head/C-Spine Posture Neutral Position L-Spine Posture Increased Lordosis Pelvis Posture (R) Rotated Anterior (R) Iliac Crest Superior Hip Posture (R) Internally Rotated Palpation Assessment Location Two Palpation Location R L4-L5 PA mobility Palpation Findings Soft Tissue Tightness Tenderness One Palpation Location Right paralumbars, QL Palpation Findings Soft Tissue Tightness Trigger Point PT-OP-K Range of Motion Start: 05/13/18 16:44 Freq: Status: Active Protocol: Document 05/13/18 16:45 EA (Rec: 05/17/18 07:30 EA [id number]) Lumbar Spine Range of Motion Lumbar Spine Active Percentage Testing Position Standing Flexion 95 Extension 50 Rotation Left 80 Rotation Right 80 Lateral Flexion Left 50 Lateral Flexion Right 55 ROM Limitations Soft Tissue Tightness Pain Hip Goniometric Range of Motion Hip Active Hip ROM WFL Yes Extension 10 PT-OP-L Special Tests Start: 05/13/18 16:44 Freq: Status: Active Protocol: Document 05/13/18 16:45 EA (Rec: 05/17/18 07:37 EA [id number]) Special Tests Lumbar Spine Special Tests Other- 1 Test Results Posterior quadrant: negative to facets and nerve compression. Prone Instability Test Test Results Sensitive Straight Leg Raise Test Results - Hip Special Tests Stef Test Results + Comments tightnes to both RF PT-OP-M Strength Start: 05/13/18 16:44 Freq: Status: Active Protocol: Document 05/13/18 16:45 EA (Rec: 05/17/18 07:37 EA [id number]) Hip Strength Hip Manual Muscle Testing Right Reason Not Measured WFL Knee Strength Knee Manual Muscle Testing Right Reason Not Measured WFL Ankle/Foot Strength Ankle and Foot Manual Muscle Testing Right Reason Not Measured WFL Comments able to walk on heels and toes PT-OP-T Assessment and Plan Start: 05/13/18 16:44 Freq: Status: Active Protocol: Document 10/06/18 11:59 IJS (Rec: 10/06/18 11:59 IJS [id number]) Physical Therapy Plan Discharge Physical Therapy Discharge Reasons No Longer Attending PT Discharge Comments This patient was last seen . She was provided with a home exercise program.
== END 2018-10-13 13:55 | disposition home or self-care (01) ==
LOC: PHYS 13:45
PROVIDERS: PCP Internal Medicine; Visit Provider Internal Medicine
DX: M54.30 Sciatica, unspecified side (principal)
CPT/HCPCS: 97014; 97110; 97140; 97161; 97530; 97535; G0283

== ENCOUNTER → 2019-07-26 07:26 | Outpatient (CLI) | payer OTHER, SELFPAY ==
[2019-07-26 08:49] LABS: BUN Creatinine Ratio 30.6 (6-22); Blood Urea Nitrogen 19 mg/dL (7-17); Calcium 9.4 mg/dL (8.4-10.2); Carbon Dioxide 24 mmol/L (22-32); Chloride 106 mmol/L (98-107); Cholesterol 167 mg/dL (140-199); Estimated Glomerular Filt Rate > 60.0 mL/min (>60); Glucose 98 mg/dL (70-100); HDL Cholesterol 57 mg/dL (40-60); HEMOLYSIS < 15 (0-50); LDL Cholesterol Calculated 98 mg/dL (<100); Potassium 4.8 mmol/L (3.4-5.1); Sodium 138 mmol/L (137-145); Triglycerides 58 mg/dL (35-150)
== END ==
PROVIDERS: PCP Internal Medicine; Referring Provider Internal Medicine; Visit Provider Internal Medicine
DX: I10 Essential (primary) hypertension (principal); R73.01 Impaired fasting glucose
CPT/HCPCS: 36415; 80048; 80061

== ENCOUNTER → 2019-08-11 15:07 | Outpatient (CLI) | payer OTHER, SELFPAY ==
--- NOTE | 2019-08-11 15:18 | DIET.PN ---
Diabetes Intake: Initial Assessment Assess: Mrs. Rosales is a 58 YOF referred for type 2 diabetes. She reports she was diagnosed several years ago and was instructed to manage with healthy lifestyle habits. She states she has been very active over the years, but since Covid-19 her activity level has significantly decreased and her eating habits have not been as consistent. She concerned with the amount of contraindicating information available. She recently had new lab work done and is ready to make a change. Labs: Per pt report: 5.6 Meds: na Diet: per 24 hr recall: B: bran muffin, banana or fruit smoothie L: leftovers D: spaghetti w/ meatballs; steak/chix w/ salad Sn: Nuts, pretzels w/ pb, paleo bar Wt: 172# Ht: 65? BMI: 28.6 DX: Altered nutrition related laboratory values related to impaired glucose metabolism, lack of previous exposure to nutrition information as evidenced by pt report, diagnosis of diabetes, previous diet high in refined carbohydrates. Intervention: 1. Completed intake assessment. Discussed barriers to care. 2. Discussed pathophysiology of diabetes. Reviewed A1c and its correlation to blood glucose numbers. Discussed recommended BG ranges. 3. Discussed importance of self-monitoring, how often, and when to check. Provided demonstration on use of glucometer. 4. Reviewed hyper/hypoglycemia and treatment. 5. Reviewed safe disposal of equipment (strip/lancets/insulin needles). 6. Created SMART goals for pt self-care and success. 7. Discussed program curriculum outline and class needs based on individual goals. SMART Goals: 1. Pt would like to lose 10# (~5% bw) in 3 mo by increasing exercise to 150 min/wk and keeping a food log. Overall goal of 130#. 2. Pt would like to learn to eat better through carbohydrate counting and reducing/eliminating alcohol from diet. Monitor/Evaluate: Anticipate excellent compliance. Pt will attend full DSME program. Healthy eating class 1 scheduled for August 16, 2019.
== END ==
PROVIDERS: PCP Internal Medicine; Referring Provider Internal Medicine; Visit Provider Internal Medicine
DX: E11.9 Type 2 diabetes mellitus without complications (principal); Z71.3 Dietary counseling and surveillance; Z68.28 Body mass index [BMI] 28.0-28.9, adult
CPT/HCPCS: G0108

== ENCOUNTER → 2019-08-16 09:24 | Outpatient (CLI) | payer OTHER, SELFPAY ==
--- NOTE | 2019-08-16 11:48 | DIET.PN ---
Diabetes: Healthy Eating 1 Intervention: ? Discussed pathophysiology of diabetes and impact of nutrition/diet on blood sugar control.? Discussed fed versus non-fed state.?? ? Reviewed importance of Balance, Variety, and Moderation. ? Discussed the effect of carbohydrates/protein/fat on blood sugar control.? ? Stressed importance of consistent carbohydrate intake at each meal and provided instructions for recommended servings/portions of carbohydrates/protein per meal. Provided educational material. ? Reviewed carbohydrate counting and measuring carbohydrate content via serving sizes and reading nutrition labels.? Provided handouts.?? ? Discussed the difference between simple versus complex carbohydrates and the effect of fiber on blood sugar control.? Discussed various methods to increase fiber content in diet. ? Discussed the plate method for creating more carbohydrate conscious balanced meals. ? Stressed importance of meal timing and not going >4-5 hours between meals. Encouraged adding protein to evening snack to support glucose control overnight. ? Discussed importance of making dietary habits part of lifestyle change.
== END ==
PROVIDERS: PCP Internal Medicine; Referring Provider Internal Medicine; Visit Provider Internal Medicine
DX: E11.9 Type 2 diabetes mellitus without complications (principal); Z71.3 Dietary counseling and surveillance
CPT/HCPCS: 36415; 83036; G0109

== ENCOUNTER → 2019-08-16 11:09 | Outpatient (CLI) | payer OTHER, SELFPAY ==
[2019-08-16 12:31] LABS: Hemoglobin A1C% w Est Avg Glu 5.4 % (4.0-6.0)
== END ==
PROVIDERS: PCP Internal Medicine; Referring Provider Internal Medicine; Visit Provider Internal Medicine
DX: R73.01 Impaired fasting glucose (principal)
CPT/HCPCS: 36415; 83036

== ENCOUNTER → 2019-08-25 09:50 | Outpatient (CLI) | payer OTHER, SELFPAY ==
--- NOTE | 2019-08-25 12:19 | DIET.PN ---
Diabetes: Healthy Eating 2 Intervention: Fats effects on glucose, weight, heart disease, cholesterol Sat Vs Unsat Protein- animal and plant based options Low, med, high fat meats Sugar substitutes Sodium Health claims Grocery shopping guidelines Eating away from home Alcohol Sick day guidelines Ketone Testing
== END ==
PROVIDERS: PCP Internal Medicine; Referring Provider Internal Medicine; Visit Provider Internal Medicine
DX: E11.9 Type 2 diabetes mellitus without complications (principal); Z71.3 Dietary counseling and surveillance
CPT/HCPCS: G0109

== ENCOUNTER → 2020-02-02 16:16 | Outpatient (CLI) | payer OTHER, SELFPAY ==
--- NOTE | 2020-02-02 16:19 | DI.MG.S_ITS ---
BILATERAL DIGITAL SCREENING MAMMOGRAM 3D/2D WITH CAD: 02/02/2020 CLINICAL: Routine screening. Family history of breast cancer. Comparison is made to exams dated: 06/17/2016 mammogram, 09/12/2014 mammogram, and 07/08/2012 mammogram - [facility]. The tissue of both breasts is heterogeneously dense. This may lower the sensitivity of mammography. Current study was also evaluated with a Computer Aided Detection (CAD) system. No significant masses, calcifications, or other findings are seen in either breast. There has been no significant interval change. IMPRESSION: NEGATIVE There is no mammographic evidence of malignancy. A 1 year screening mammogram is recommended. This exam was interpreted at Station ID: [id number]. NOTE: For mammograms, a report in lay terms will be sent to the patient. Approximately 15% of breast malignancies will not be visualized mammographically. In the management of a palpable breast mass, a negative mammogram must not discourage biopsy of a clinically suspicious lesion. Electronically Signed By: Gary Fan acr/bryanrad:02/02/2020 16:46:52 letter sent: Normal Exam ACR BI-RADS Category 1: Negative 3341F
== END ==
PROVIDERS: PCP Internal Medicine; Referring Provider Internal Medicine; Visit Provider Internal Medicine
DX: Z12.31 Encounter for screening mammogram for malignant neoplasm of breast (principal); Z80.3 Family history of malignant neoplasm of breast
CPT/HCPCS: 77063; 77067

== ENCOUNTER → 2020-08-07 12:10 | Outpatient (CLI) | payer OTHER, SELFPAY ==
[2020-08-07 12:54] LABS: BUN Creatinine Ratio 27.9 (6-22); Blood Urea Nitrogen 17 mg/dL (7-17); Calcium 9.7 mg/dL (8.4-10.2); Carbon Dioxide 27 mmol/L (22-32); Chloride 104 mmol/L (98-107); Estimated Glomerular Filt Rate > 60.0 mL/min (>60); Glucose 104 mg/dL (70-100); HEMOLYSIS < 15 (0-50); Potassium 4.1 mmol/L (3.4-5.1); Sodium 137 mmol/L (137-145)
[2020-08-07 12:55] LABS: Hemoglobin A1C% w Est Avg Glu 5.5 % (4.0-6.0)
== END ==
PROVIDERS: PCP Internal Medicine; Referring Provider Internal Medicine; Visit Provider Internal Medicine
DX: I10 Essential (primary) hypertension (principal); R73.01 Impaired fasting glucose
CPT/HCPCS: 36415; 80048; 83036

== ENCOUNTER → 2021-02-08 13:45 | Outpatient (CLI) | payer OTHER, SELFPAY ==
--- NOTE | 2021-02-08 13:47 | DI.MG.S_ITS ---
BILATERAL DIGITAL SCREENING MAMMOGRAM 3D/2D WITH CAD: 02/08/2021 CLINICAL: Routine screening. Family history of breast cancer. Comparison is made to exams dated: 02/02/2020 mammogram, 06/17/2016 mammogram, and 09/12/2014 mammogram - [facility]. The tissue of both breasts is heterogeneously dense. This may lower the sensitivity of mammography. Current study was also evaluated with a Computer Aided Detection (CAD) system. No significant masses, calcifications, or other findings are seen in either breast. There has been no significant interval change. IMPRESSION: NEGATIVE There is no mammographic evidence of malignancy. A 1 year screening mammogram is recommended. This exam was interpreted at Station ID: [id number]. NOTE: For mammograms, a report in lay terms will be sent to the patient. Approximately 15% of breast malignancies will not be visualized mammographically. In the management of a palpable breast mass, a negative mammogram must not discourage biopsy of a clinically suspicious lesion. Electronically Signed By: Darrius saez/patricio:02/08/2021 16:23:55 letter sent: Normal Exam ACR BI-RADS Category 1: Negative 3341F
== END ==
PROVIDERS: PCP Internal Medicine; Referring Provider Internal Medicine; Visit Provider Internal Medicine
DX: Z12.31 Encounter for screening mammogram for malignant neoplasm of breast (principal); Z80.3 Family history of malignant neoplasm of breast
CPT/HCPCS: 77063; 77067

== ENCOUNTER → 2021-02-27 07:47 | Outpatient (CLI) | payer OTHER, SELFPAY ==
[2021-02-27 08:49] LABS: Alanine Aminotransferase 17 IU/L (<35); Albumin 4.1 g/dL (3.5-5.0); Albumin Globulin Ratio 1.3 (1.0-2.8); Alkaline Phosphatase 98 U/L (38-126); Aspartate Aminotransferase 25 IU/L (14-36); BUN Creatinine Ratio 25.8 (6-22); Bilirubin Total 0.5 mg/dL (0.2-1.3); Blood Urea Nitrogen 17 mg/dL (7-17); Calcium 9.6 mg/dL (8.4-10.2); Carbon Dioxide 27 mmol/L (22-32); Chloride 106 mmol/L (98-107); Cholesterol 180 mg/dL (140-199); Estimated Glomerular Filt Rate > 60.0 mL/min (>60); Globulin 3.1 g/dL (1.7-4.1); Glucose 103 mg/dL (70-100); HDL Cholesterol 72 mg/dL (40-60); HEMOLYSIS < 15 (0-50); LDL Cholesterol Calculated 97 mg/dL (<100); Potassium 4.6 mmol/L (3.4-5.1); Sodium 138 mmol/L (137-145); Total Protein 7.2 g/dL (6.3-8.2); Triglycerides 54 mg/dL (35-150)
[2021-02-28 16:35] LABS: HIV 1 & 2 Ab/Ag 4th Gen Combo NEGATIVE (NEGATIVE)
== END ==
PROVIDERS: PCP Internal Medicine; Referring Provider Internal Medicine; Visit Provider Internal Medicine
DX: R73.01 Impaired fasting glucose (principal); Z13.220 Encounter for screening for lipoid disorders; Z11.59 Encounter for screening for other viral diseases; Z11.4 Encounter for screening for human immunodeficiency virus [HIV]
CPT/HCPCS: 36415; 80053; 80061; 87389; 87522

== ENCOUNTER → 2023-01-20 10:56 | Outpatient (CLI) | payer OTHER, SELFPAY ==
--- NOTE | 2023-01-20 | DI.MG.S_ITS ---
BILATERAL DIGITAL SCREENING MAMMOGRAM 3D/2D WITH CAD: 01/20/2023 CLINICAL: Routine screening. Family history of breast cancer. Comparison is made to exams dated: 02/08/2021 mammogram, 02/02/2020 mammogram, and 06/17/2016 mammogram - [facility]. Both breasts are heterogeneously dense, which may obscure small masses (category c / 51-75% glandular tissue). Current study was also evaluated with a Computer Aided Detection (CAD) system. No significant masses, calcifications, or other findings are seen in either breast. There has been no significant interval change. IMPRESSION: NEGATIVE There is no mammographic evidence of malignancy. A 1 year screening mammogram is recommended. Based on the Tyrer Cuzick model (a risk assessment model) the patient's lifetime risk is 17.2% and her 10 year risk is 7.2%. According to the ACR, ACS, and NCCN guidelines, an annual breast MRI exam along with mammogram is recommended if the patient's lifetime risk is 20% or greater. This exam was interpreted at Station ID: [id number]. NOTE: For mammograms, a report in lay terms will be sent to the patient. Approximately 15% of breast malignancies will not be visualized mammographically. In the management of a palpable breast mass, a negative mammogram must not discourage biopsy of a clinically suspicious lesion. Electronically Signed By: Warner acevedo/patricio:01/20/2023 12:50:25 letter sent: Normal Exam ACR BI-RADS Category 1: Negative 3341F
== END ==
PROVIDERS: PCP Internal Medicine; Referring Provider Internal Medicine; Visit Provider Internal Medicine
DX: Z12.31 Encounter for screening mammogram for malignant neoplasm of breast (principal); Z80.3 Family history of malignant neoplasm of breast
CPT/HCPCS: 77063; 77067

== ENCOUNTER → 2024-03-11 11:21 | Outpatient (CLI) | payer OTHER, SELFPAY ==
[2024-03-11 12:40] LABS: Hemoglobin A1C% w Est Avg Glu 5.1 % (4.0-6.0)
[2024-03-11 12:41] LABS: Alanine Aminotransferase 22 IU/L (<35); Albumin 4.5 g/dL (3.5-5.0); Albumin Globulin Ratio 1.7 (1.0-2.8); Alkaline Phosphatase 93 U/L (38-126); Aspartate Aminotransferase 31 IU/L (14-36); BUN Creatinine Ratio 25.4 (6-22); Bilirubin Total 0.4 mg/dL (0.2-1.3); Blood Urea Nitrogen 17 mg/dL (7-17); Calcium 9.9 mg/dL (8.4-10.2); Carbon Dioxide 25 mmol/L (22-32); Chloride 104 mmol/L (98-107); Cholesterol 197 mg/dL (140-199); Estimated Glomerular Filt Rate > 60 mL/min (>60); Globulin 2.6 g/dL (1.7-4.1); Glucose 95 mg/dL (80-110); HDL Cholesterol 82 mg/dL (40-60); HEMOLYSIS < 15 (0-50); LDL Cholesterol Calculated 102 mg/dL (<100); Potassium 4.5 mmol/L (3.4-5.1); Sodium 137 mmol/L (137-145); Total Protein 7.1 g/dL (6.3-8.2); Triglycerides 64 mg/dL (35-150)
== END ==
PROVIDERS: PCP Internal Medicine; Referring Provider Internal Medicine; Visit Provider Internal Medicine
DX: E78.5 Hyperlipidemia, unspecified (principal); I10 Essential (primary) hypertension
CPT/HCPCS: 36415; 80053; 80061; 83036